=== PATIENT | male | born 1980 | race Caucasian/White ===

== ENCOUNTER → 2018-08-08 | Outpatient (REF) ==
[~2018-08-08] MED LIST: BACL10TA2 PO; BACL1TAB9 PO; DIPH25CA PO; GABA-845 PO; GLUC500C5 PO; HYDR-3713 PO; HYDR-3719 PO; MELA1CAP2 PO; NEXI40CA PO; NUCY100T11 PO; OXYC-141 PO; OXYC10TA3 PO; OXYC15TA76 PO; SKEL800T97 PO; TIZA2TA PO; ZOLO100T PO; ZOLO25TA PO; [UNRECOGNIZED DRUG - CODE] PO
--- NOTE | 2018-08-08 13:34 | REP ---
Clinical: Right knee pain. Technique: AP, lateral, bilateral oblique and sunrise views of the right knee. Findings: Minimal age-related changes are appreciated. No overt osteoarthritic degenerative findings noted. No acute fracture dislocation. No effusion. Impression: Mild generalized age-related changes. Electronically Signed by Neville Stinson MD 08/08/2018 01:26 P
--- NOTE | 2018-08-08 13:37 | REP ---
Clinical: Pain and disability. Technique: AP, lateral, coned-down views of the lumbosacral spine. Findings: Alignment and lordosis maintained without evidence for acute fracture / compression injury or subluxation. Moderate degenerative disc osteophyte complex at L5-S1 and L4-5 include endplate sclerosis, disc space narrowing, and hypertrophic facet changes. Remainder examination appears normal. Impression: Moderate degenerative changes at L5-S1 >> L4-5. Electronically Signed by Neville Stinson MD 08/08/2018 01:29 P
== END ==
LOC: M SMT 12:58
PROVIDERS: ATTEND Internal Medicine
DX: Z00.00 Encounter for general adult medical examination without abnormal findings (principal)

== ENCOUNTER → 2019-06-18 | Outpatient (CLI) | payer OTHER ==
[~2019-06-18] MED LIST changes: -DIPH25CA PO; +DIPH25CA32 PO
--- NOTE | 2019-06-18 14:00 | REP ---
SCROTAL ULTRASOUND: Real-time sonographic evaluation of the scrotum and contents performed. The testicles are normal in size and echotexture, right testicle measuring 4.6 x 2.8 x 3.3 cm and left testicle 4.6 x 2.5 x 2.7 cm. There is no testicular mass or torsion. Blood flow in seen in each testicle with duplex Doppler evaluation. There is a 4 mm cyst in the head of the left epididymis. A few tiny scattered microcalcifications are seen in the right testicle. Very small hydroceles are present. No varicocele is seen. IMPRESSION: No testicular mass or torsion. Cyst head left epididymis 4 mm maximally. A few tiny calcifications right testicle. Very small hydroceles. Unreviewed
== END ==
LOC: M RAD 10:53
PROVIDERS: ATTEND Nurse Practitioner Family
DX: N50.3 Cyst of epididymis (principal)

== ENCOUNTER → 2019-08-06 | Outpatient (REF) | payer OTHER ==
[2019-08-06 18:35] LABS: APPEARANCE, URINE CLEAR (CLEAR); BACTERIA, URINE AUTO NEGATIVE (NEGATIVE); BILIRUBIN, URINE AUTO NEGATIVE (NEGATIVE); BLOOD, URINE BLOOD NEGATIVE (NEGATIVE); COLOR, URINE YELLOW (YELLOW); GLUCOSE, URINE (UA) AUTO NEGATIVE (NEGATIVE); KETONE, URINE AUTO NEGATIVE (NEGATIVE); LEUKOCYTE ESTERASE, URINE AUTO NEGATIVE (NEGATIVE); MUCUS, URINE SMALL (NEGATIVE); NITRITE, URINE AUTO NEGATIVE (NEGATIVE); PROTEIN, URINE AUTO NEGATIVE (NEGATIVE); RBC, URINE AUTO 2 /HPF (0-3); SPECIFIC GRAVITY URINE AUTO 1.015 (1.002-1.035); SQUAMOUS EPITHELIAL CELL UR AU 0 /HPF (0-6); UROBILINOGEN, URINE AUTO 0.2 mg/dL (0.0-2.0); WBC, URINE AUTO 0 /HPF (0-3)
[2019-08-06 20:39] LABS: CHLAMYDIA DNA AMPLIFICATION NEGATIVE (NEGATIVE); GC DNA AMPLIFICATION NEGATIVE (NEGATIVE)
== END ==
LOC: M SMT 17:24
PROVIDERS: ATTEND Nurse Practitioner Family
DX: N50.819 Testicular pain, unspecified (principal); Z79.899 Other long term (current) drug therapy
CPT/HCPCS: 81001; 87086; 87491; 87591; G0463